=== PATIENT | male | born 1980 | race Hispanic/Latino ===

== ENCOUNTER 2017-11-01 08:49 | Emergency (ER) | payer OTHER ==
[~2017-11-01] VITALS: Ht 175.3 cm; Wt 81.6 kg
--- NOTE | 2017-11-01 09:04 | ED AMS/SEIZURE/WEAK/DIZZY ---
History of Present Illness General Chief Complaint: ETOH/Drug Related Complaint Stated Complaint: METH OD Source: patient, EMS Exam Limitations: clinical condition Vital Signs & Intake/Output Vital Signs & Intake/Output Vital Signs Date Time Temp Pulse Resp B/P B/P Pulse O2 O2 Flow FiO2 Mean Ox Delivery Rate 11/01 1613 98.4 41 18 113/63 95 Room Air Room Air 11/01 1455 Room Air Room Air 11/01 1318 98.1 44 15 111/55 94 Room Air Room Air 11/01 1150 Room Air Room Air 11/01 1005 98.9 55 16 125/62 97 11/01 0924 Room Air 11/01 0855 98.7 77 16 133/76 96 Room Air Allergies Coded Allergies: Penicillins (UNKNOWN 11/01/17) Triage Note: PT BIBA FROM [facility] [address] FROM HIS HOME. PEOPLE CALLED BECAUSE HE WAS NOT ACTING NORMAL. PT HAS A SYNCOPAL EPISODE S/P FREAKING OUT ABOUT PEOPLE BEING THERE. Triage Nurses Notes Reviewed? yes HPI: Patient presents for evaluation of altered mental status. EMS suspects patient may have taken too much of his weekend methadone although the patient himself denies this. History is limited given the patient's clinical condition. He denies alcohol or drug use currently. He denies fever or cold symptoms or other issues prior to reporting to work today. Past History Travel History Traveled to [place] past 21 day No Medical History Any Pertinent Medical History? see below for history Surgical History Surgical History: non-contributory Family History Hx Contributory? No Review of Systems Review of Systems Constitutional: Reports: no symptoms. EENTM: Reports: no symptoms. Respiratory: Reports: no symptoms. Cardiovascular: Reports: no symptoms. GI: Reports: no symptoms. Genitourinary: Reports: no symptoms. Musculoskeletal: Reports: no symptoms. Skin: Reports: no symptoms. Neurological/Psychological: Reports: no symptoms. Hematologic/Endocrine: Reports: no symptoms. Immunologic/Allergic: Reports: no symptoms. All Other Systems: Reviewed and Negative Physical Exam Physical Exam General Appearance: see below Comments: General: Alert, calm, cooperative Head: Normocephalic, atraumatic Eyes: Pupils 2 mm bilaterally, no nystagmus Ears: Normal inspection Nose: Normal inspection Throat: Moist mucosa Neck: Supple, no goiter Heart: Regular rate and rhythm, no murmurs rubs or gallops Lungs: Clear to auscultation bilaterally with good air entry Abdomen: Soft nontender nondistended, normal bowel sounds Chest: Nontender Extremities: Normal range of motion grossly, no tremors present, no cyanosis clubbing or edema of the upper extremities Neurologic: cranial nerves II through XII grossly intact, speech clear, gait not assessed Psychiatric: No apparent delusions or hallucinations, no pressured speech or thought blocking, relatively bizarre mannerisms and vocalisms although patient answers questions readily Core Measures ACS in differential dx? No CVA/TIA Diagnosis No Sepsis Present: No Sepsis Focused Exam Completed? No Progress Differential Diagnosis: DRUG INTOXICATION, DRUG OVERDOSE, HEAT EXHAUSTION, DEHYDRATION, METABOLIC ABNORMALITY, PSYCHIATRIC DISORDER Plan of Care: Orders Procedure Date/time Status EKG 11/01 1346 Active LACTIC ACID 11/01 1202 Active Patient Safety Monitor 11/01 0931 Active URINE DRUG SCREEN FOR ER ONLY 11/01 09 Complete TSH REFLEX 11/01 09 Complete AMMONIA 11/01 09 Complete LACTIC ACID 11/01 09 Complete ETHANOL 11/01 09 Complete COMPREHENSIVE METABOLIC PANEL 11/01 09 Complete CBC WITHOUT DIFFERENTIAL 11/01 09 Complete Laboratory Tests 11/01/17 1405: Urine Opiates Screen > 4000.00 H, Methadone Screen > 735 H, Barbiturate Screen < 60, Ur Phencyclidine Scrn 7.40, Amphetamines Screen 148, U Benzodiazepines Scrn < 85, Urine Cocaine Screen 343 H, Urine Cannabis Screen 77.00 H 11/01/17 0911: Anion Gap 9, Estimated GFR > 60, BUN/Creatinine Ratio 17.5, Glucose 89, Lactic Acid 0.8, Calcium 8.8, Total Bilirubin 0.4, AST 29, ALT 39, Alkaline Phosphatase 39, Ammonia 10, Total Protein 7.0, Albumin 4.0, Globulin 3.0, Albumin/Globulin Ratio 1.3, TSH &T3 &Free T4 Intrp 3.560, CBC w Diff MAN DIFF ORDERED, RBC 4.22 L, MCV 92.9, MCH 31.3 H, MCHC 33.7, RDW 13.9, MPV 8.3, Gran % 47.6, Lymphocytes % 43.1, Monocytes % 8.1, Eosinophils % 0.6, Basophils % 0.6, Absolute Granulocytes 4.0, Absolute Lymphocytes 3.6 H, Absolute Monocytes 0.7 H, Absolute Eosinophils 0, Absolute Basophils 0, Platelet Estimate VERIFIED BY SMEAR, Normocytic RBCs VERIFIED, Normochromic RBCs VERIFIED, Serum Alcohol < 10.0 Initial ED EKG: SINUS BRADYCARDIA WITHOUT ACUTE st SEGMENT CHANGES Comments: 11/01/2017 1:47:13 PM patient resting comfortably at this time. 11/01/2017 5:27:12 PM Christian is feeling much better and wishes to return home. He denies suicide ideation or intentional overdose. He has declined evaluation by crisis. He states he does have [facility]. Departure Departure Disposition: HOME OR SELF CARE Condition: Stable Clinical Impression Primary Impression: Opiate abuse, episodic Secondary Impressions: Cocaine abuse, Marijuana use, Methadone use Additional Instructions: Avoid recreational or illicit drugs and take prescription medications only as prescribed. Follow-up with your primary care physician this week for reevaluation. Follow-up with [facility] as well as previously arranged. Return if any concerns or sudden worsening. If you do not currently have a primary care physician then please contact the [facility] practice at the following phone number: . Please note that there might be incidental findings in your evaluation that are unrelated to the current emergency department visit. Please notify your primary care doctor about this emergency department visit in order to obtain and review all of the testing performed so that these incidental findings can be monitored as needed. If you had an x-ray performed, please understand that some fractures or other findings may not be seen on the initial set of x-rays. If your symptoms persist you might need a repeat set of x-rays to check for such a fracture. If you had a laceration evaluated, please understand that foreign bodies such as glass or wood may not be visible to the naked eye or on plain x-rays. If the wound becomes red, swollen, increasingly more painful or if there is any drainage from the wound, please have it reevaluated by a physician for the possibility of a retained foreign body. If you're unable to follow up as outlined in the discharge instructions please return to the emergency department. Thank you for choosing the [facility] Emergency Department for your care. It was a pleasure to serve you today. Fritz Gan M.D. [facility] Departure Forms: Customer Survey General Discharge Information
[2017-11-01 09:31] LABS: ABSOLUTE BASOPHIL COUNT 0 /CUMM (0.0-0.2); ABSOLUTE EOSINOPHIL COUNT 0 /CUMM (0.0-0.7); ABSOLUTE LYMPH COUNT 3.6 /CUMM (1.2-3.4); ABSOLUTE MONOCYTE COUNT 0.7 /CUMM (0.10-0.60); BASOPHIL % 0.6 % (0.0-2.0); EOSINOPHIL % 0.6 % (0-5); GRANULOCYTE % 47.6 % (42.2-75.2); HEMATOCRIT 39.2 % (42-52); MEAN CORPUSCULAR HGB 31.3 PG (27.0-31.0); MEAN CORPUSCULAR HGB CONC 33.7 G/DL (33.0-37.0); MEAN CORPUSCULAR VOLUME 92.9 FL (80.0-94.0); MEAN PLATELET VOLUME 8.3 FL (7.4-10.4); PLATELET COUNT 289 /CUMM (130-400); RBC DISTRIBUTION WIDTH 13.9 % (11.5-14.5); RED BLOOD CELL CT 4.22 /CUMM (4.70-6.10); WHITE BLOOD CELL COUNT 8.3 /CUMM (4.8-10.8)
[2017-11-01 17:34] VITALS: BP 116/68
== END 2017-11-01 17:45 ==
LOC: ERH 08:49
PROVIDERS: Emergency Medicine
DX: F11.10 Opioid abuse, uncomplicated (principal); F14.10 Cocaine abuse, uncomplicated; F12.90 Cannabis use, unspecified, uncomplicated; R41.82 Altered mental status, unspecified
CPT/HCPCS: 80307; 93005; 93010; 96372; 96374; 96375; G0480; J1200; J1630